=== PATIENT | female | born 1965 | race Caucasian/White ===

== ENCOUNTER 2017-11-07 09:41 | Inpatient (IN) | payer BC, SELFPAY ==
[2017-11-07 09:42] VITALS: BP 82/60; PULSE 76; RESP 18; TEMP 37.2; O2SAT 100; BMI 24.0
[2017-11-07] MEDS: proMETHazine 25 MG/ML Syringe 12.5 MG IV (10:25)
[2017-11-07] MEDS: 0.9% Normal Saline 1,000 ML 1000 ML IV ×2 (10:25)
--- NOTE | 2017-11-07 10:31 | ED.DCSUM_ITS ---
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 Her significant other had diarrhea and fever the preceding week after slipping on the floor at [facility]. Patient states that she last had vomiting last evening. She last had diarrhea 1 hour ago. No recent antibiotics. No recent travel or bad food exposure. She states she has lost 6 pounds since Saturday. She states that her urine is very concentrated and her mouth feels dry. She describes the diarrhea as yellow water. Physical Examination: Blood pressure 82/60 heart rate of 76 respirations are 18 pulse ox 100% on room air afebrile Gen: Well-nourished well-developed Head: Normocephalic atraumatic Eyes: Perrl EOMI ENT: TMs clear no rhinorrhea dry mucous membranes Neck: Supple no lymphadenopathy no JVD nontender CVS: Regular rate rhythm no murmurs normal S1-S2 Respiratory: No distress clear to auscultation bilaterally chest nontender Abdomen: Soft nontender nondistended normal bowel sounds no masses Back: Nontender Extremity: Nontender no edema Skin: Normal color no rash Neuro: alert orientated ?3 CN II-XII intact normal strength sensation reflexes gait cerebellar Psych: Normal affect normal mood Emergency Department Course and Treatment: White count is normal. Potassium 3.2. Lipase 807. Lactic acid 0.8. Patient received IV fluids blood pressures improved. She is orthostatic negative. She also received Zofran for nausea. CT the abdomen pelvis demonstrated a wen colitis. She received Ancef and Flagyl. Stool cultures were ordered but she has not yet produce stool for us to test. Plan is admission into the hospital. Impression: 1. Acute gastroenteritis 2. Dehydration This note was generated with [employer] dictation software. It may contain incorrect words, spelling, and punctuation that were not noted in review of the chart prior to signing ED Disposition - Plan for ED Patient: Chief Complaint: Nausea/Vomiting/Diarrhea Referrals: Care Physician,No Primary [Primary Care Provider] -
[2017-11-07 10:44] LABS: Absolute Lymphocyte Count 0.86 X10^3/ul (0.83-4.51); Absolute Neutrophil Count 3.5 X10^3/uL (2.0-7.7); Basophil# 0.01 X10^3/uL; Basophil% 0.2 % (0-1); Eosinophil# 0.03 X10^3/uL; Eosinophils% 0.6 % (0-5); Hematocrit 37.1 % (37-47); Hemoglobin 12.2 g/dl (12.0-15.0); Lymphocyte # 0.86 X10^3/ul (4.0); Mean Corp Hgb Conc 32.9 g/gl (32-36); Mean Corpuscular Hgb 28.8 pg (27.0-32.0); Mean Corpuscular Volume 87.5 fL (81-99); Mean Platelet Vol. 11.1 fl (6.2-12.0); Monocyte# 0.62 X10^3/uL; Monocyte% 12.3 % (0-10); Neutrophil # 3.53 X10^3/uL (2.7-7.7); Neutrophil % 69.9 % (47-70); Platelet Count 129 K/mm3 (150-450); RBC Distribution Width CV 13.9 % (11.6-14.6); RBC Distribution Width SD 44.6 fl (35.1-43.9); Red Blood Count 4.24 M/mm3 (4.2-5.4); White Blood Count 5.1 K/mm3 (4.4-11.0)
[2017-11-07 10:50] LABS: POSITIVE COUNT NO; POSITIVE DIFFERENTIAL NO; POSITIVE MORPHOLOGY NO
[2017-11-07 10:58] LABS: ALB/GLOB Ratio 0.8 RATIO (0.9-2.4); AST(SGOT) 27 U/L (15-37); Alanine Aminotransfer ALT/SGPT 20 U/L (13-56); Albumin, Serum 3.1 g/dL (3.2-5.0); Alkaline Phosphatase 55 U/L (45-117); Anion Gap 10 (5-15); BUN 14 mg/dL (7-18); BUN/Creat Ratio 14.3 RATIO (10-20); Calcium,Total 8.4 mg/dL (8.5-10.1); Chloride 103 mmol/L (98-107); Creatinine, Serum 0.98 mg/dL (0.55-1.02); EST Glomerular Filtration Rate 64 mL/min (>60); Est Glom Filt Rate - Afr Amer 77 mL/min (>60); Estimated Creatinine Clearance 67.74 ml/min; Globulin 3.9 g/dL (2.2-4.2); Glucose 82 mg/dL (74-106); Lipase 807 U/L (73-393); Potassium 3.2 mmol/L (3.5-5.1); Sodium Level 139 mmol/L (136-145)
[2017-11-07 11:49] LABS: Magnesium 2.4 mg/dL (1.6-2.6)
[2017-11-07 12:12] VITALS: RESP 16
[2017-11-07 14:26] VITALS: BP 87/53; PULSE 70; RESP 14; O2SAT 99
[2017-11-07] MEDS: 0.9% Normal Saline 1,000 ML 125 ML IV ×2 (14:35→18:11)
[2017-11-07 14:45] VITALS: BP 91/63; PULSE 82; RESP 14; O2SAT 100
[2017-11-07 15:07] LABS: Lactic Acid 0.8 mmol/L (0.4-2.0)
[2017-11-07 16:05] VITALS: BMI 24.5
[2017-11-07 16:09] VITALS: BMI 24.5
--- NOTE | 2017-11-07 17:04 | PCM.HP.STD ---
Problem List (1) Colitis Status: Acute History of Present Illness Date of Admission: 11/07/17 Chief Complaint: Abdominal pain and diarrhea The patient is a 52 year old F with no PMH presents after a few days of diarrhea, abdominal pain and weight loss. She states that on 10/28 she and her spent a few days in [facility] and initially he had fevers, chills, and diarrhea and it resolved after a few days. She has continued to have diarrhea and intermittent cramping pain without emesis. No blood in her stool and no family h/o IBD. Past Medical History Allergies No Known Allergies Allergy (Verified 11/07/17 09:44) Home Medications: Ambulatory Orders Medication Instructions Recorded NK [NK] 11/07/17 Surgical History: no surgical history Lives: With Family Smoking Status: Never smoker Alcohol: None Drugs: None - *Family History Paternal History Items: Heart Disease Review of Systems Constitutional: Reports: Weight Change. Denies: Chills, Fever Eyes: Denies: Blurred vision, Vision Change HEENT: Denies: Head Aches, Sinus Congestion, Sinus Drainage Cardiovascular: Denies: Chest Pain, Palpitations Respiratory: Denies: Cough, Shortness of breath at rest, Sputum production Gastrointestinal: Reports: Abdominal Pain, Diarrhea, Nausea. Denies: Hematochezia, Melena, Vomiting Genitourinary: Denies: Dysuria Musculoskeletal: Denies: Joint Pain, Joint Tenderness Skin: Denies: Rash, Wounds Neurological: Denies: Numbness, Tingling, Focal weakness Psychiatric: Denies: Anxiety, Depression Hematologic/ Lymphatic: Denies: Easy Bruising, Easy Bleeding VTE Information - Inpt Only VTE Present on Admission: No Patient Problems: Active and Suspected Problems Colitis (Acute) - Physical Exam General: Alert, Oriented x3, Cooperative, No apparent distress HEENT: Atraumatic, EOMI, Normocephalic Neck: Supple, No JVD Lungs: Clear to auscultation, Normal air movement, No rhonchi, No wheeze, No rales Cardiovascular: Regular rate, Regular Rhythm, Normal S1, Normal S2, No murmurs Abdomen: Soft, Non-Distended, No Hepato-splenomegaly, Tender - slightly to deep palpation Extremities: No edema, Capillary Refill Less than 3 Seconds Skin: No rashes, No breakdown Neurological: Neuro grossly intact, Sensory exam intact to light touch and pain Psych/Mental Status: Normal Affect, Appropriate Vital Signs Temp Pulse Resp BP Pulse Ox 98.9 F 82 14 91/63 100 11/07/17 09:42 11/07/17 14:45 11/07/17 14:45 11/07/17 14:45 11/07/17 14:45 Weight: 161 lb 1.6 oz Body Mass Index (BMI) 24.5 Assessment/Plan All Active Problems Colitis (Acute) 1. Infectious pancolitis - Based on the CT scan she has a wen colitis - No leukocytosis and not septic - Will start IVF@125 and make NPO - Cipro/Flagyl IV - stool studies pending, lactoferrin is positive - Zofran for nausea DVT: Heparin Diet: NPO Code Visit Inpatient E&M: 78360 Init Hosp L2
[2017-11-07 18:01] VITALS: BP 83/56; PULSE 64; RESP 18; TEMP 36.8; O2SAT 100
[2017-11-07] MEDS: Ciprofloxacin 400 MG/200 ML BAG 200 MG IV (19:21)
[2017-11-07] MEDS: Heparin Injection (Vial) 5,000 UNIT/ML VIAL 5000 UNIT SC (20:33)
[2017-11-07] MEDS: 0.9% NaCl Peripheral Flush Adult/Peds IV (20:34)
[2017-11-07] MEDS: Ondansetron 4 MG/2 ML Vial IV (20:34)
[2017-11-07 20:51] VITALS: BP 86/56; PULSE 67; RESP 16; TEMP 37; O2SAT 100
[2017-11-08 01:52] VITALS: BP 89/51; PULSE 65; RESP 16; TEMP 36.9; O2SAT 97
[2017-11-08] MEDS: 0.9% Normal Saline 1,000 ML 125 ML IV (03:41)
[2017-11-08 06:31] LABS: Absolute Lymphocyte Count 1.43 X10^3/ul (0.83-4.51); Absolute Neutrophil Count 2.3 X10^3/uL (2.0-7.7); Basophil# 0.02 X10^3/uL; Basophil% 0.4 % (0-1); Eosinophil# 0.06 X10^3/uL; Eosinophils% 1.3 % (0-5); Hematocrit 29.4 % (37-47); Hemoglobin 9.5 g/dl (12.0-15.0); Lymphocyte # 1.43 X10^3/ul (4.0); Lymphocyte % 32.1 % (19-41); Mean Corp Hgb Conc 32.3 g/gl (32-36); Mean Corpuscular Hgb 28.9 pg (27.0-32.0); Mean Corpuscular Volume 89.4 fL (81-99); Mean Platelet Vol. 10.9 fl (6.2-12.0); Monocyte# 0.62 X10^3/uL; Monocyte% 13.9 % (0-10); Neutrophil # 2.33 X10^3/uL (2.7-7.7); Neutrophil % 52.3 % (47-70); Platelet Count 121 K/mm3 (150-450); RBC Distribution Width CV 14.2 % (11.6-14.6); RBC Distribution Width SD 46.8 fl (35.1-43.9); Red Blood Count 3.29 M/mm3 (4.2-5.4); White Blood Count 4.5 K/mm3 (4.4-11.0)
[2017-11-08 06:35] LABS: POSITIVE COUNT NO; POSITIVE DIFFERENTIAL NO; POSITIVE MORPHOLOGY NO
[2017-11-08 06:54] LABS: Anion Gap 9 (5-15); BUN 11 mg/dL (7-18); BUN/Creat Ratio 16.2 RATIO (10-20); Calcium,Total 7.3 mg/dL (8.5-10.1); Chloride 113 mmol/L (98-107); Creatinine, Serum 0.68 mg/dL (0.55-1.02); EST Glomerular Filtration Rate 97 mL/min (>60); Est Glom Filt Rate - Afr Amer 117 mL/min (>60); Estimated Creatinine Clearance 97.62 ml/min; Glucose 64 mg/dL (74-106); Potassium 3.9 mmol/L (3.5-5.1); Sodium Level 146 mmol/L (136-145)
--- NOTE | 2017-11-08 08:23 | NURSING ---
Addendum entered by Eva Ambriz 11/08/17 09:59: at 0900 Dr. Lantigua reported that he changed IVF and that he ordered clear liquids. Patient given 3 cups of apple juice at that time. Original Note: Addendum entered by Eva Ambriz 11/08/17 08:38: BGT checked at this time- pt denies symptoms and states she is feeling better today. Dr. Lantigua updated. Original Note: Noticed that AM lab results showed NA= 146 and glucose=64 and that pt NPO with NS running at 125cc/hr. GABRIELA Jansen and Dr. Lantigua notified of same. This RN entered room to check on patient- pt resting with eyes closed, easily awakened and verbalized understanding that doctor is on unit. Pt. asymptomatic at this time.
[2017-11-08 08:35] LABS: Bedside Glucose 53 mg/dL (70-110)
[2017-11-08] MEDS: Ciprofloxacin 400 MG/200 ML BAG 200 MG IV (09:36)
[2017-11-08] MEDS: Heparin Injection (Vial) 5,000 UNIT/ML VIAL 5000 UNIT SC ×2 (09:47→21:01)
[2017-11-08 09:50] VITALS: BP 77/46; PULSE 66; RESP 18; TEMP 36.8; O2SAT 100
[2017-11-08 10:00] VITALS: BP 81/54
[2017-11-08 10:06] LABS: Bedside Glucose 69 mg/dL (70-110)
--- NOTE | 2017-11-08 10:20 | PCM.PN.HOSP ---
Patient Problems: Active and Suspected Problems Colitis (Acute) Hypotension (Acute) Hypoglycemia (Acute) Subjective: Feels better today. Patient states that her symptoms began Saturday. Also that time patient's got sick but his symptoms did resolve after to 3 days but her symptoms continue to get worse. Patient never had any symptoms to this extent before. No prior history of inflammatory bowel disease. No family history of inflammatory bowel disease. Vitals/I&O's: Vital Signs Temp Pulse Resp BP Pulse Ox 36.8 C 66 18 81/54 L 100 11/08/17 09:50 11/08/17 09:50 11/08/17 09:50 11/08/17 10:00 11/08/17 09:50 Oxygen Delivery Method Room Air Weight: 73.074 kg Body Mass Index (BMI) 24.5 Intake and Output for Last 24 Hours 11/06/17 11/07/17 11/08/17 23:59 23:59 23:59 Intake Total 672 / 672 797 / 797 Output Total 200 / 200 Balance 472 / 472 797 / 797 General: Alert, No apparent distress HEENT: Atraumatic, Normocephalic Oral: Moist Mucosa, No Gingival or Mucosal Lesions/ Ulcerations Neck: No Nodes, Thyroid Normal Size and Texture Lungs: Clear to auscultation, Normal air movement, No rhonchi, No wheeze Cardiovascular: Regular rate, Regular Rhythm, Normal S1, Normal S2, No murmurs Abdomen: Bowel Sounds Present, Soft, Non Tender, Non-Distended Extremities: No edema, No Calf Tenderness Skin: No rashes, No breakdown Musculoskeletal: No Tenderness to Palpation of Joints or Extremities, No Muscle Wasting Neurological: Sensory exam intact to light touch and pain, Coordination normal Psych/Mental Status: Normal Affect, Appropriate Laboratory Results 11/08/17 06:00: WBC 4.5, RBC 3.29 L, Hgb 9.5 L, Hct 29.4 L, MCV 89.4, MCH 28.9, MCHC 32.3, RDW 14.2, RDW Differential 46.8 H, Plt Count 121 L, MPV 10.9, Immature Gran % (Auto) 0.000, Neut % (Auto) 52.3, Lymph % (Auto) 32.1, [place] % (Auto) 13.9 H, Eos % (Auto) 1.3, Baso % (Auto) 0.4, Absolute Neuts (auto) 2.3, Absolute Lymphs (auto) 1.43, Total Counted Not Reportable 11/08/17 06:00: Sodium 146 H, Potassium 3.9, Chloride 113 H, Carbon Dioxide 24.0, Anion Gap 9, BUN 11, Creatinine 0.68, Estim Creat Clear Calc 97.62, Est GFR (MDRD) Af Amer 117, Est GFR (MDRD) Non-Af 97, BUN/Creatinine Ratio 16.2, Glucose 64 L, Calcium 7.3 L 11/08/17 08:29: POC Glucose 53 L 11/08/17 09:52: POC Glucose 69 L Current Medications Heparin Sodium (Porcine) (Heparin Na) 5,000 unit SC Q12 GUS Last Admin: 11/08/17 09:47 Dose: 5,000 unit Ciprofloxacin (Cipro) 400 mg in 200 mls @ 200 mls/hr IV Q12 GUS Last Admin: 11/08/17 09:36 Dose: 200 mls/hr Metronidazole (Flagyl) 500 mg in 100 mls @ 100 mls/hr IV Q8 GUS Last Admin: 11/08/17 05:08 Dose: 100 mls/hr Sodium Chloride () 1,000 mls @ 999 mls/hr IV .Q1H1M ONE Stop: 11/08/17 11:19 Dextrose/Sodium Chloride () 1,000 mls @ 150 mls/hr IV .Q6H40M GUS Magnesium Hydroxide (Milk Of Magnesia) 30 ml PO DAILY PRN PRN PRN Reason: Constipation Nutritional Formula (Lactose Free) (Ensure Clear) 120 ml PO 4X/DAY GUS Ondansetron HCl (Zofran) 4 mg IV Q8H PRN PRN PRN Reason: NAUSEA Last Admin: 11/07/17 20:34 Dose: 4 mg Sodium Chloride () 5 - 30 ml IV UD PRN PRN Reason: SALINE FLUSH Last Admin: 11/07/17 20:34 Dose: 10 ml Medical Necessity - Tobacco Use Smoking Status: Never smoker Assessment/Plan All Active Problems Colitis (Acute) Hypotension (Acute) Hypoglycemia (Acute) 1. Acute colitis Suspect infectious Patient had what sounded like viral gastroenteritis initially and also during that time her was sick with similar symptoms. She may have developed a secondary infection as well Would continue with the Cipro and Flagyl Follow-up enteric pathogen studies as well as C. difficile Clear diet I doubt inflammatory bowel diseases this is the patient's first issue with this, additionally, patient's was sick with similar symptoms. I doubt ischemic has patient had no significant abdominal pain and her lactic acid was normal 2. Hypotension Asymptomatic Will give patient bolus of IV fluids and monitor 3. Hypoglycemia Will change to maintenance fluids to D5 half-normal and monitor 4. DVT prophylaxis with heparin 5. Elevated lipase Clinically no pancreatitis could be correlated with the underlying colitis or infectious process associated with it. Follow-up in the morning Patient will be monitored at least overnight and assess her responsiveness to IV fluids and antibiotics. It is yet to be determined when the patient may be ready for discharge. Code Visit Inpatient E&M: 21915 [facility] Hosp L3
--- NOTE | 2017-11-08 10:25 | PN_ITS ---
Patient Problems: Active and Suspected Problems Colitis (Acute) Hypotension (Acute) Hypoglycemia (Acute) Subjective: Feels better today. Patient states that her symptoms began Saturday. Also that time patient's got sick but his symptoms did resolve after to 3 days but her symptoms continue to get worse. Patient never had any symptoms to this extent before. No prior history of inflammatory bowel disease. No family history of inflammatory bowel disease. Vitals/I&O's: Vital Signs Temp Pulse Resp BP Pulse Ox 36.8 C 66 18 81/54 L 100 11/08/17 09:50 11/08/17 09:50 11/08/17 09:50 11/08/17 10:00 11/08/17 09:50 Oxygen Delivery Method Room Air Weight: 73.074 kg Body Mass Index (BMI) 24.5 Intake and Output for Last 24 Hours 11/06/17 11/07/17 11/08/17 23:59 23:59 23:59 Intake Total 672 / 672 797 / 797 Output Total 200 / 200 Balance 472 / 472 797 / 797 General: Alert, No apparent distress HEENT: Atraumatic, Normocephalic Oral: Moist Mucosa, No Gingival or Mucosal Lesions/ Ulcerations Neck: No Nodes, Thyroid Normal Size and Texture Lungs: Clear to auscultation, Normal air movement, No rhonchi, No wheeze Cardiovascular: Regular rate, Regular Rhythm, Normal S1, Normal S2, No murmurs Abdomen: Bowel Sounds Present, Soft, Non Tender, Non-Distended Extremities: No edema, No Calf Tenderness Skin: No rashes, No breakdown Musculoskeletal: No Tenderness to Palpation of Joints or Extremities, No Muscle Wasting Neurological: Sensory exam intact to light touch and pain, Coordination normal Psych/Mental Status: Normal Affect, Appropriate Laboratory Results 11/08/17 06:00: WBC 4.5, RBC 3.29 L, Hgb 9.5 L, Hct 29.4 L, MCV 89.4, MCH 28.9, MCHC 32.3, RDW 14.2, RDW Differential 46.8 H, Plt Count 121 L, MPV 10.9, Immature Gran % (Auto) 0.000, Neut % (Auto) 52.3, Lymph % (Auto) 32.1, [place] % ( Auto) 13.9 H, Eos % (Auto) 1.3, Baso % (Auto) 0.4, Absolute Neuts (auto) 2.3, Absolute Lymphs (auto) 1.43, Total Counted Not Reportable 11/08/17 06:00: Sodium 146 H, Potassium 3.9, Chloride 113 H, Carbon Dioxide 24.0 , Anion Gap 9, BUN 11, Creatinine 0.68, Estim Creat Clear Calc 97.62, Est GFR ( MDRD) Af Amer 117, Est GFR (MDRD) Non-Af 97, BUN/Creatinine Ratio 16.2, Glucose 64 L, Calcium 7.3 L 11/08/17 08:29: POC Glucose 53 L 11/08/17 09:52: POC Glucose 69 L Current Medications Heparin Sodium (Porcine) (Heparin Na) 5,000 unit SC Q12 GUS Last Admin: 11/08/17 09:47 Dose: 5,000 unit Ciprofloxacin (Cipro) 400 mg in 200 mls @ 200 mls/hr IV Q12 GUS Last Admin: 11/08/17 09:36 Dose: 200 mls/hr Metronidazole (Flagyl) 500 mg in 100 mls @ 100 mls/hr IV Q8 GUS Last Admin: 11/08/17 05:08 Dose: 100 mls/hr Sodium Chloride () 1,000 mls @ 999 mls/hr IV .Q1H1M ONE Stop: 11/08/17 11:19 Dextrose/Sodium Chloride () 1,000 mls @ 150 mls/hr IV .Q6H40M GUS Magnesium Hydroxide (Milk Of Magnesia) 30 ml PO DAILY PRN PRN PRN Reason: Constipation Nutritional Formula (Lactose Free) (Ensure Clear) 120 ml PO 4X/DAY GUS Ondansetron HCl (Zofran) 4 mg IV Q8H PRN PRN PRN Reason: NAUSEA Last Admin: 11/07/17 20:34 Dose: 4 mg Sodium Chloride () 5 - 30 ml IV UD PRN PRN Reason: SALINE FLUSH Last Admin: 11/07/17 20:34 Dose: 10 ml Medical Necessity - Tobacco Use Smoking Status: Never smoker Assessment/Plan All Active Problems Colitis (Acute) Hypotension (Acute) Hypoglycemia (Acute) 1. Acute colitis * Suspect infectious * Patient had what sounded like viral gastroenteritis initially and also during that time her was sick with similar symptoms. * She may have developed a secondary infection as well * Would continue with the Cipro and Flagyl * Follow-up enteric pathogen studies as well as C. difficile * Clear diet * I doubt inflammatory bowel diseases this is the patient's first issue with this, additionally, patient's was sick with similar symptoms. * I doubt ischemic has patient had no significant abdominal pain and her lactic acid was normal 2. Hypotension * Asymptomatic * Will give patient bolus of IV fluids and monitor 3. Hypoglycemia * Will change to maintenance fluids to D5 half-normal and monitor 4. DVT prophylaxis with heparin 5. Elevated lipase * Clinically no pancreatitis could be correlated with the underlying colitis or infectious process associated with it. * Follow-up in the morning Patient will be monitored at least overnight and assess her responsiveness to IV fluids and antibiotics. It is yet to be determined when the patient may be ready for discharge. Code Visit Inpatient E&M: 34242 Subs Hosp L3
[2017-11-08] MEDS: 0.9% Normal Saline 1,000 ML 999 ML IV (10:49)
[2017-11-08 11:00] LABS: Bedside Glucose 125 mg/dL (70-110)
--- NOTE | 2017-11-08 11:54 | CASEMGMT ---
RN CM Assessment completed See Link. DC Plan: home.
[2017-11-08] MEDS: Dext 5%-0.45% NS 1,000 ML 150 ML IV ×2 (11:58→19:25)
[2017-11-08] MEDS: 0.9% NaCl Peripheral Flush Adult/Peds IV (15:12)
[2017-11-08] MEDS: Ondansetron 4 MG/2 ML Vial IV (15:12)
[2017-11-08 15:13] VITALS: BP 83/54; PULSE 68; RESP 16; TEMP 37.1; O2SAT 100
[2017-11-08 20:00] VITALS: BP 90/55; PULSE 62; RESP 18; TEMP 36.7; O2SAT 100
[2017-11-09 02:00] VITALS: BP 94/51; PULSE 74; RESP 18; TEMP 37.3; O2SAT 98
[2017-11-09] MEDS: Dext 5%-0.45% NS 1,000 ML 150 ML IV (03:27)
[2017-11-09 08:16] LABS: Absolute Lymphocyte Count 1.56 X10^3/ul (0.83-4.51); Absolute Neutrophil Count 2.4 X10^3/uL (2.0-7.7); Basophil# 0.04 X10^3/uL; Basophil% 0.9 % (0-1); Eosinophils% 2.1 % (0-5); Hematocrit 28.5 % (37-47); Hemoglobin 9.2 g/dl (12.0-15.0); Lymphocyte # 1.56 X10^3/ul (4.0); Lymphocyte % 33.4 % (19-41); Mean Corp Hgb Conc 32.3 g/gl (32-36); Mean Corpuscular Hgb 28.9 pg (27.0-32.0); Mean Corpuscular Volume 89.6 fL (81-99); Mean Platelet Vol. 11.3 fl (6.2-12.0); Monocyte# 0.57 X10^3/uL; Monocyte% 12.2 % (0-10); Neutrophil # 2.39 X10^3/uL (2.7-7.7); Neutrophil % 51.2 % (47-70); Platelet Count 125 K/mm3 (150-450); RBC Distribution Width CV 13.9 % (11.6-14.6); RBC Distribution Width SD 44.6 fl (35.1-43.9); Red Blood Count 3.18 M/mm3 (4.2-5.4); White Blood Count 4.7 K/mm3 (4.4-11.0)
[2017-11-09 08:17] LABS: Differential Indicated SCAN CRITERIA MET; POSITIVE COUNT NO; POSITIVE DIFFERENTIAL NO; POSITIVE MORPHOLOGY YES
[2017-11-09 08:51] LABS: ALB/GLOB Ratio 0.8 RATIO (0.9-2.4); AST(SGOT) 13 U/L (15-37); Alanine Aminotransfer ALT/SGPT 14 U/L (13-56); Albumin, Serum 2.3 g/dL (3.2-5.0); Alkaline Phosphatase 40 U/L (45-117); Anion Gap 8 (5-15); BUN 4 mg/dL (7-18); BUN/Creat Ratio 4.9 RATIO (10-20); Calcium,Total 7.3 mg/dL (8.5-10.1); Chloride 109 mmol/L (98-107); Creatinine, Serum 0.81 mg/dL (0.55-1.02); EST Glomerular Filtration Rate 79 mL/min (>60); Est Glom Filt Rate - Afr Amer 96 mL/min (>60); Estimated Creatinine Clearance 81.96 ml/min; Globulin 2.8 g/dL (2.2-4.2); Glucose 100 mg/dL (74-106); Lipase 2891 U/L (73-393); Potassium 3.4 mmol/L (3.5-5.1); Protein, Total 5.1 g/dL (6.4-8.2); Sodium Level 144 mmol/L (136-145)
[2017-11-09 09:48] VITALS: BP 93/55; PULSE 70; RESP 16; TEMP 37.4; O2SAT 96
[2017-11-09] MEDS: Heparin Injection (Vial) 5,000 UNIT/ML VIAL 5000 UNIT SC (09:55)
--- NOTE | 2017-11-09 10:03 | PCM.PN.HOSP ---
Patient Problems: Active and Suspected Problems Hypoglycemia (Acute) Hypotension (Acute) Colitis (Acute) Subjective: Diarrhea resolved. no abdominal pain. no nausea. Vitals/I&O's: Vital Signs Temp Pulse Resp BP Pulse Ox 37.4 C H 70 16 93/55 L 96 11/09/17 09:48 11/09/17 09:48 11/09/17 09:48 11/09/17 09:48 11/09/17 09:48 Oxygen Delivery Method Room Air Weight: 73.074 kg Body Mass Index (BMI) 24.5 Intake and Output for Last 24 Hours 11/07/17 11/08/17 11/09/17 23:59 23:59 23:59 Intake Total 672 / 672 3514 / 3514 1707 / 1707 Output Total 200 / 200 1000 / 1000 500 / 500 Balance 472 / 472 2514 / 2514 1207 / 1207 General: Alert, No apparent distress HEENT: Atraumatic, Normocephalic Oral: Moist Mucosa, No Gingival or Mucosal Lesions/ Ulcerations Neck: No Nodes, Thyroid Normal Size and Texture Lungs: Clear to auscultation, Normal air movement, No rhonchi, No wheeze Cardiovascular: Regular rate, Regular Rhythm, Normal S1, Normal S2 Abdomen: Bowel Sounds Present, Soft, Non Tender, Non-Distended, No Hepato-splenomegaly Laboratory Results 11/08/17 09:52: POC Glucose 69 L 11/08/17 10:54: POC Glucose 125 H 11/09/17 07:30: WBC 4.7, RBC 3.18 L, Hgb 9.2 L, Hct 28.5 L, MCV 89.6, MCH 28.9, MCHC 32.3, RDW 13.9, RDW Differential 44.6 H, Plt Count 125 L, MPV 11.3, Immature Gran % (Auto) 0.200, Neut % (Auto) 51.2, Lymph % (Auto) 33.4, [place] % (Auto) 12.2 H, Eos % (Auto) 2.1, Baso % (Auto) 0.9, Absolute Neuts (auto) 2.4, Absolute Lymphs (auto) 1.56, Total Counted Not Reportable 11/09/17 07:30: Sodium 144, Potassium 3.4 L, Chloride 109 H, Carbon Dioxide 27.0, Anion Gap 8, BUN 4 L, Creatinine 0.81, Estim Creat Clear Calc 81.96, Est GFR (MDRD) Af Amer 96, Est GFR (MDRD) Non-Af 79, BUN/Creatinine Ratio 4.9 L, Glucose 100, Calcium 7.3 L, Total Bilirubin 0.20, AST 13 L, ALT 14, Alkaline Phosphatase 40 L, Total Protein 5.1 L, Albumin 2.3 L, Globulin 2.8, Albumin/Globulin Ratio 0.8 L, Lipase 2891 H Current Medications Heparin Sodium (Porcine) (Heparin Na) 5,000 unit SC Q12 [facility] Last Admin: 11/09/17 09:55 Dose: 5,000 unit Dextrose/Sodium Chloride () 1,000 mls @ 150 mls/hr IV .Q6H40M [facility] Last Admin: 11/09/17 03:27 Dose: 150 mls/hr Azithromycin 500 mg/ Dextrose 255 mls @ 250 mls/hr IV Q24 [facility] Last Admin: 11/09/17 09:32 Dose: 250 mls/hr Magnesium Hydroxide (Milk Of Magnesia) 30 ml PO DAILY PRN PRN PRN Reason: Constipation Nutritional Formula (Lactose Free) (Ensure Clear) 120 ml PO 4X/DAY [facility] Last Admin: 11/09/17 09:32 Dose: Not Given Ondansetron HCl (Zofran) 4 mg IV Q8H PRN PRN PRN Reason: NAUSEA Last Admin: 11/08/17 15:12 Dose: 4 mg Sodium Chloride () 5 - 30 ml IV UD PRN PRN Reason: SALINE FLUSH Last Admin: 11/08/17 15:12 Dose: 10 ml Medical Necessity - Tobacco Use Smoking Status: Never smoker Assessment/Plan All Active Problems Hypoglycemia (Acute) Hypotension (Acute) Colitis (Acute) 1. Acute colitis Due to Campylobacter Patient will require total of 3 days of Azithromycin C. diff negative. 2. Hypotension Asymptomatic resolved Will give patient bolus of IV fluids and monitor 3. Hypoglycemia resolved, now hyperglycemic with D5 4. DVT prophylaxis with heparin 5. Elevated lipase Clinically no pancreatitis could be correlated with the underlying colitis or infectious process associated with it. Follow-up in the morning Increased today, but symptomatically better Discharge today.
--- NOTE | 2017-11-09 10:08 | PCM.DC ---
- Discharge Diagnoses Current Active Problems: Current Active and Chronic Problems Hypoglycemia (Acute) Hypotension (Acute) Colitis (Acute) You will use the following diet at home:: No restrictions Your food should be the consistency of: Regular Your liquids should be the consistency of: Regular/Thin Discharge Activity: Return to Normal Activity Return to work on:: 11/11/17 Call your doctor if you observe: Fever of 101 or Higher, - - worsening abdominal pain, diarrhea Allergies/Adverse Reactions: Allergies No Known Allergies Allergy (Verified 11/07/17 09:44) Medications to take at Discharge Azithromycin 500 mg PO DAILY #2 tab 11/09/17 The following prescriptions were given: Azithromycin 500 mg PO DAILY #2 tab Primary Care Physician: Care Physician,No Primary [Primary Care Provider] - Please follow up with your Primary Care Physician in: 1-2 weeks Test Results: Test results from this visit will be discussed in further detail at your follow-up appointment, if applicable. Proposed Discharge Date: 11/09/17
--- NOTE | 2017-11-09 10:09 | PCM.WORK.EX ---
Work/School Excuse Work/School Excuse for:: Patient Please excuse this person from:: Work From: 11/07/17 through: 11/11/17
--- NOTE | 2017-11-09 10:11 | PCM.DC.SUM ---
Discharge Date and Diagnosis - Problem List Patient Problems: Active and Suspected Problems Hypoglycemia (Acute) Hypotension (Acute) Colitis (Acute) Date of Admission: 11/07/17 Date of Discharge: 11/09/17 - Primary Discharge Diagnosis Active and Suspected Problems Hypoglycemia (Acute) Hypotension (Acute) Colitis (Acute) Hospital Course and Treatment Imaging Results: Clinical Impression(s) from Imaging Studies Abdomen/Pelvis CT 11/07/17 11:25 IMPRESSION: Findings in keeping with diffuse colitis. Multiple small gallstones. Prominence of the biliary triads. Electronically Signed: Prasanna Benjamin MD at 13:59 EDT Tel [phone], Service support , Operations: None Procedures: None Summary of Care Provided: The patient is a 52 year old F presents with diarrhea and abdominal pain. Found to have colitis on CT. Stool culture + for campylobacter. Likely contracted Campylobacter due to food poisoning. Patient's was also sick, but his was self-remitting. 1. Acute colitis Due to Campylobacter Patient will require total of 3 days of Azithromycin C. diff negative. 2. Hypotension Asymptomatic resolved Will give patient bolus of IV fluids and monitor 3. Hypoglycemia resolved, now hyperglycemic with D5 4. Elevated lipase Clinically no pancreatitis could be correlated with the underlying colitis or infectious process associated with it. Increased today, but symptomatically better[] Discharge Diet: No Restrictions Discharge Activity: Return to Normal Activity Return to work on:: 11/11/17 Call your doctor if you observe: Fever of 101 or Higher, - - worsening abdominal pain, diarrhea Home Medications: Medications to take at Discharge Azithromycin 500 mg PO DAILY #2 tab 11/09/17 Following Prescrptions Were Given to Patient: Azithromycin 500 mg PO DAILY #2 tab Primary Care Physician: Care Physician,No Primary [Primary Care Provider] - Please follow up with your Primary Care Physician in: 1-2 weeks Disposition: Home Minutes spent on discharge:: 32 Patient Condition:: Good Medical Necessity - Tobacco Use Smoking Status: Never smoker Meaningful Use Info Meaningful Use Diagnoses (Choose all that apply): None applicable Code Visit Inpatient E&M: 34343 Disch Hosp
== END 2017-11-09 13:01 | disposition home or self-care (01) | DRG 373 ==
LOC: ED 10:36 → MS2 16:03
PROVIDERS: Admitting Provider Family Medicine; Emergency Provider Emergency Medicine
DX: A04.5 Campylobacter enteritis (principal); I95.9 Hypotension, unspecified; E16.2 Hypoglycemia, unspecified; R74.8 Abnormal levels of other serum enzymes; E86.0 Dehydration
CPT/HCPCS: 36415; 74177; 80048; 80053; 82962; 83605; 83630; 83690; 83735; 85025; 87177; 87209; 87493; 87506; 97802; 99284; J7030; Q9967; A4216; J0744; J2405; J7799

== ENCOUNTER → 2018-10-23 | Outpatient (CLI) | payer BC, SELFPAY ==
[2018-10-23 17:26] LABS: Absolute Lymphocyte Count 1.53 X10^3/uL (0.83-4.51); Absolute Neutrophil Count 3.6 X10^3/uL (2.0-7.7); Basophil# 0.03 X10^3/uL; Basophil% 0.5 % (0-1); Eosinophil# 0.14 X10^3/uL; Eosinophils% 2.4 % (0-5); Hematocrit 38.8 % (37-47); Hemoglobin 12.4 g/dL (12.0-15.0); Lymphocyte # 1.53 X10^3/ul (4.0); Lymphocyte % 26.3 % (19-41); Mean Corpuscular Hgb 29.1 pg (27.0-32.0); Mean Corpuscular Volume 91.1 fL (81-99); Mean Platelet Vol. 11.4 fl (6.2-12.0); Monocyte# 0.47 X10^3/uL; Monocyte% 8.1 % (0-10); NRBC Flagged by Analyzer 0 % (0-5); Neutrophil # 3.62 X10^3/uL (2.7-7.7); Neutrophil % 62.4 % (47-70); Platelet Count 177 K/mm3 (150-450); RBC Distribution Width CV 13.7 % (11.6-14.6); RBC Distribution Width SD 45.7 fl (35.1-43.9); Red Blood Count 4.26 M/mm3 (4.2-5.4); White Blood Count 5.8 K/mm3 (4.4-11.0)
[2018-10-23 17:42] LABS: Erythrocyte Sedimentation Rate 5 mm/hr (0-30)
[2018-10-23 18:24] LABS: AST(SGOT) 18 U/L (15-37); Alanine Aminotransfer ALT/SGPT 24 U/L (13-56); Albumin, Serum 3.7 g/dL (3.2-5.0); Alkaline Phosphatase 83 U/L (45-117); Anion Gap 5 (5-15); BUN 12 mg/dL (7-18); BUN/Creat Ratio 12.4 RATIO (10-20); Calcium,Total 8.6 mg/dL (8.5-10.1); Chloride 106 mmol/L (98-107); Creatinine, Serum 0.97 mg/dL (0.55-1.02); EST Glomerular Filtration Rate 64 mL/min (>60); Est Glom Filt Rate - Afr Amer 78 mL/min (>60); Ferritin 35 ng/mL (8-252); Free T3 2.9 pg/mL (2.18-3.98); Globulin 3.6 g/dL (2.2-4.2); Glucose 82 mg/dL (74-106); Iron 80 ug/dL (50-170); Protein, Total 7.3 g/dL (6.4-8.2); Sodium Level 143 mmol/L (136-145); T4 Free Direct 0.66 ng/dL (0.76-1.46); Thyroid Stim Hormone (TSH) 2.31 uIU/mL (0.358-3.74); Vitamin B12 309 pg/mL (211-911); Vitamin D,25 Hydroxy 23.2 ng/mL (29.95-100.01)
== END | disposition home or self-care (01) ==
LOC: MFPLAB 16:35
PROVIDERS: Family Provider Family Medicine; PCP Family Medicine; Referring Provider Family Medicine; Visit Provider Family Medicine
DX: R53.83 Other fatigue (principal); Z85.850 Personal history of malignant neoplasm of thyroid
CPT/HCPCS: 36415; 80053; 82306; 82533; 82607; 82728; 83540; 84439; 84443; 84481; 85025; 85652

== ENCOUNTER → 2019-01-06 15:35 | Outpatient (CLI) | payer BC, SELFPAY ==
[2019-01-06 18:01] LABS: Absolute Lymphocyte Count 1.46 X10^3/uL (0.83-4.51); Basophil# 0.02 X10^3/uL; Basophil% 0.4 % (0-1); Eosinophil# 0.15 X10^3/uL; Eosinophils% 2.9 % (0-5); Hematocrit 37.4 % (37-47); Hemoglobin 12.1 g/dL (12.0-15.0); Lymphocyte # 1.46 X10^3/ul (4.0); Lymphocyte % 28.5 % (19-41); Mean Corp Hgb Conc 32.4 g/dL (32-36); Mean Corpuscular Hgb 29.4 pg (27.0-32.0); Mean Corpuscular Volume 90.8 fL (81-99); Mean Platelet Vol. 11.8 fl (6.2-12.0); Monocyte# 0.46 X10^3/uL; NRBC Flagged by Analyzer 0 % (0-5); Neutrophil # 3.03 X10^3/uL (2.7-7.7); Platelet Count 159 K/mm3 (150-450); RBC Distribution Width CV 13.4 % (11.6-14.6); RBC Distribution Width SD 44.4 fl (35.1-43.9); Red Blood Count 4.12 M/mm3 (4.2-5.4); White Blood Count 5.1 K/mm3 (4.4-11.0)
[2019-01-06 18:23] LABS: Follicle Stimulating Hormone 111.5 mIU/mL; Luteinizing Hormone 46.9 mIU/mL; Thyroid Stim Hormone (TSH) 0.38 uIU/mL (0.358-3.74); Vitamin B12 832 pg/mL (211-911); Vitamin D,25 Hydroxy 24.8 ng/mL (29.95-100.01)
[2019-01-07 13:01] LABS: T4 Free Direct 0.84 ng/dL (0.76-1.46)
== END ==
LOC: MFPLAB 15:35
PROVIDERS: Family Provider Family Medicine; PCP Family Medicine; Referring Provider Family Medicine; Visit Provider Family Medicine
DX: R23.2 Flushing (principal); E53.9 Vitamin B deficiency, unspecified; E55.9 Vitamin D deficiency, unspecified; E03.9 Hypothyroidism, unspecified
CPT/HCPCS: 36415; 82306; 82607; 83001; 83002; 84439; 84443; 85025

== ENCOUNTER 2019-08-22 10:06 | Emergency (ER) | payer BC, SELFPAY ==
[2019-08-22] VITALS (7 sets, daily range): BP systolic 101–123; BP diastolic 74–79; PULSE 59–88; RESP 13–16; TEMP 36.3–37; O2SAT 96–100; BMI 28.8
--- NOTE | 2019-08-22 11:00 | EKG12_ITS ---
Test Reason : DYSRHYTHMIA Blood Pressure : / mmHG Vent. Rate : 060 BPM Atrial Rate : 060 BPM P-R Int : 112 ms QRS Dur : 080 ms QT Int : 392 ms P-R-T Axes : 043 056 036 degrees QTc Int : 392 ms Normal sinus rhythm Normal ECG Confirmed by BILL HERNANDEZ, JUDY ([id number]), publishing editor JOYCE MARTINEZ ([id number]) on 08/25/2019 9:23:57 AM Referred By: Confirmed By:JUDY KHAN MD
--- NOTE | 2019-08-22 11:01 | RAD_ITS ---
STUDY: X-RAY CHEST REASON FOR EXAM: Female, 53 years old. tested positive for COVID-19 July 05 -- continued cough, pt states can hear crackles in lungs TECHNIQUE: PA and lateral views of the chest. COMPARISON: None. FINDINGS: There is hyperinflation of the lungs consistent with chronic obstructive lung disease (COPD). There is no demonstrated pleural abnormality. Normal size heart. Normal mediastinum and bob. Normal visualized pulmonary arteries. Normal visualized aortic arch and descending thoracic aorta. There are diffuse degenerative changes of the visualized thoracic spine. Normal visualized ribs, clavicles, and shoulders. There is no demonstrated abnormality of the visualized soft tissue structures of the upper abdomen. RAD/Chest PA and Lateral IMPRESSION: Degenerative changes, as described above. No demonstrated acute cardiopulmonary process. Electronically Signed: Benson Mckeon MD at 12:01 EDT , Service support ,
--- NOTE | 2019-08-22 11:28 | ED.VIS.GEN ---
History of Present Illness Chief Complaint: Cough Informant: Patient Narrative: Patient states to triage that she has a cough moist lung sounds and a 50 pound weight gain. The 50 pound weight gain has occurred over 6 years but most noticeably over the past couple months has been about 10 pounds. She was diagnosed with COVID at the beginning of July. She notes some lower extremity swelling and states that her thighs feel tight. She states that she coughs and her daughter hears noises that she is concerned she may have CHF or pneumonia. She tells me that she is having difficulty sleeping at night and her reports that last night she was wheezing. No recent fevers. No known heart conditions. No history of asthma. Past Medical History - Allergies and Home Meds Allergies/Adverse Reactions: Allergies No Known Allergies Allergy (Verified 08/22/19 10:11) Primary Care Physician: Levi Alarcon MD [Primary Care Provider] - 5-7 Days Surgical History: no surgical history Smoking Status: Never smoker - Family History Paternal Family History: Reports: Heart Disease Review of Systems General: Reports: - - Weight gain. Denies: Chills, Fever, Sweats Eyes: Denies: Visual changes - bilaterally, Diplopia ENT: Denies: Rhinorrhea, Sore throat Cardiovascular: Denies: Chest pain, Palpitations Respiratory: Reports: Dyspnea, Cough, Dyspnea on exertion, Paroxysmal nocturnal dyspnea. Denies: Orthopnea Gastrointestinal: Denies: Abdominal pain, Nausea, Vomiting, Diarrhea, Melena, Hematochezia Genitourinary: Denies: Dysuria, Hematuria, Frequency Musculoskeletal: Denies: Back pain, Extremity Pain Skin: Denies: Rash, Wounds Neurological: Denies: Headache, Weakness, Numbness Physical Exam Vital Signs/Narrative: Vital Signs Temp Pulse Resp BP Pulse Ox 08/22/19 10:12 97.4 F L 88 16 123/79 H 96 08/22/19 10:08 97.4 F L 88 16 123/79 H 96 Inital Vital Signs reviewed: Yes General: Well nourished, Well developed, No Acute Distress Head: Normocephalic, Atraumatic Eyes: Perrl, EOMI ENT: Moist mucous membranes, No rhinorrhea Neck: Supple, Nontender Cardiovascular: Regular rate, Regular rhythm, No murmurs Respiratory: No distress, Chest nontender, Rales Abdomen: Soft, Nontender, Nondistended, Normal bowel sounds Back: Nontender, Normal Inspection Extremities: Nontender, Edema - 1+ pitting edema of the lower extremities symmetrically bilateral Skin: Normal color, No rash Neurological: Alert, Oriented x3, Cranial nerves II-XII grossly intact, Normal Strength, Normal Sensation Psychological: Normal affect, Normal Mood Diagnostic/Tx/Re-eval Clinical Impression(s) from Imaging Studies Chest X-Ray 08/22/19 11:01 IMPRESSION: Degenerative changes, as described above. No demonstrated acute cardiopulmonary process. Electronically Signed: Benson Mckeon MD at 12:01 EDT , Service support , Laboratory Last Values WBC 4.5 K/mm3 (4.4-11.0) 08/22/19 11:23 RBC 3.91 M/mm3 (4.2-5.4) L 08/22/19 11:23 Hgb 11.3 g/dL (12.0-15.0) L 08/22/19 11:23 Hct 35.6 % (37-47) L 08/22/19 11:23 MCV 91.0 fL (81-99) 08/22/19 11:23 MCH 28.9 pg (27.0-32.0) 08/22/19 11:23 MCHC 31.7 g/dL (32-36) L 08/22/19 11:23 RDW Std Deviation 45.9 fl (35.1-43.9) H 08/22/19 11:23 RDW Coeff of [place] 13.8 % (11.6-14.6) 08/22/19 11:23 Plt Count 159 K/mm3 (150-450) 08/22/19 11:23 MPV 10.6 fl (6.2-12.0) 08/22/19 11:23 Immature Gran % (Auto) 0.200 % (0.0-0.9) 08/22/19 11:23 Neut % (Auto) 53.9 % (47-70) 08/22/19 11:23 Lymph % (Auto) 31.3 % (19-41) 08/22/19 11:23 [place] % (Auto) 9.5 % (0-10) 08/22/19 11:23 Eos % (Auto) 4.9 % (0-5) 08/22/19 11:23 Baso % (Auto) 0.2 % (0-1) 08/22/19 11:23 Absolute Neuts (auto) 2.4 X10^3/uL (2.0-7.7) 08/22/19 11:23 Absolute Lymphs (auto) 1.42 X10^3/uL (0.83-4.51) 08/22/19 11:23 Nucleated RBC % 0 % (0-5) 08/22/19 11:23 Sodium 142 mmol/L (136-145) 08/22/19 11:23 Potassium 4.0 mmol/L (3.5-5.1) 08/22/19 11:23 Chloride 107 mmol/L (98-107) 08/22/19 11:23 Carbon Dioxide 31.0 mmol/L (21.0-32.0) 08/22/19 11:23 Anion Gap 4 (5-15) L 08/22/19 11:23 BUN 14 mg/dL (7-18) 08/22/19 11:23 Creatinine 1.02 mg/dL (0.55-1.02) 08/22/19 11:23 Estim Creat Clear Calc 64.34 ml/min 08/22/19 11:23 Est GFR (MDRD) Af Amer 73 mL/min (>60) 08/22/19 11:23 Est GFR (MDRD) Non-Af 60 mL/min (>60) 08/22/19 11:23 BUN/Creatinine Ratio 13.7 RATIO (10-20) 08/22/19 11:23 Glucose 79 mg/dL (74-106) 08/22/19 11:23 Calcium 8.5 mg/dL (8.5-10.1) 08/22/19 11:23 Total Bilirubin 0.30 mg/dL (0.20-1.00) 08/22/19 11:23 AST 16 U/L (15-37) 08/22/19 11:23 ALT 26 U/L (13-56) 08/22/19 11:23 Alkaline Phosphatase 75 U/L (45-117) 08/22/19 11:23 Troponin I < 0.015 ng/mL (<0.045) 08/22/19 11:23 B-Natriuretic Peptide 42.5 pg/mL (0-100) 08/22/19 11:23 Total Protein 6.9 g/dL (6.4-8.2) 08/22/19 11:23 Albumin 3.5 g/dL (3.2-5.0) 08/22/19 11:23 Globulin 3.4 g/dL (2.2-4.2) 08/22/19 11:23 Albumin/Globulin Ratio 1.0 RATIO (0.9-2.4) 08/22/19 11:23 Urine Color Yellow (Yellow) 08/22/19 11:20 Urine Clarity Clear (Clear) 08/22/19 11:20 Urine pH 5.0 (5.0 - 8.0) 08/22/19 11:20 Ur Specific [place] 1.020 (1.002-1.030) 08/22/19 11:20 Urine Protein Negative mg/dl (Negative) 08/22/19 11:20 Urine Glucose (UA) Normal mg/dl (Normal) 08/22/19 11:20 Urine Ketones Negative mg/dl (Negative) 08/22/19 11:20 Urine Occult Blood Negative /ul (Negative) 08/22/19 11:20 Urine Nitrite Negative (Negative) 08/22/19 11:20 Urine Bilirubin Negative mg/dL (Negative) 08/22/19 11:20 Urine Urobilinogen Normal mg/dl (Normal) 08/22/19 11:20 Ur Leukocyte Esterase Negative /ul (Negative) 08/22/19 11:20 Urine RBC 0 SEEN /hpf (0-5) 08/22/19 11:20 Urine WBC 0 SEEN /hpf (0-5) 08/22/19 11:20 Ur Squamous Epith Cells 0-5 SEEN /hpf (5-10) 08/22/19 11:20 Urine Bacteria 1+ /hpf (None Seen) 08/22/19 11:20 Urine Mucus 0 SEEN /hpf (<or=2+) 08/22/19 11:20 - EKG Initial EKG Interpretation: Sinus Rhythm - EKG demonstrates a normal sinus rhythm at a rate of 60 without ectopy or concerning features of ACS - Medical Decision Making I see no evidence of pulmonary edema. No evidence of ACS. Her beta natruretic peptide is normal. Renal function is normal. I will place the patient of Lasix 40 mg once a day have her follow-up in 5 to 7 days. Monitor her weight. Asked her to place a couple pillows underneath her mattress tonight see if that makes a difference in her breathing. Return if worsening or concerns ED Disposition - Plan for ED Patient: Disposition: Home or Assisted Living Diagnosis: Lymphedema Instructions: ED Lymphedema Prescriptions: Furosemide [Lasix] 40 mg PO DAILY #6 tab Transmission Status: Sent to [id number] Referrals: Levi Alarcon MD [Primary Care Provider] - 5-7 Days
[2019-08-22 11:34] LABS: Mucous, Urine 0 SEEN /hpf (<or=2+); Red Blood Cells-Urine 0 SEEN /hpf (0-5); White Blood Cells 0 SEEN /hpf (0-5)
[2019-08-22 11:36] LABS: Color, Urine Yellow (Yellow); Glucose, Dipstick Normal (Normal); Ketone-Dipstick Negative (Negative); Leukocyte Esterase-Dipstick Negative /ul (Negative); Nitrite-Dipstick Negative (Negative); Occult Blood-Urine Negative /ul (Negative); Protein-Dipstick Negative (Negative); Urine Bilirubin Dipstick Negative (Negative); Urine Clarity Clear (Clear); Urine Urobilinogen Normal (Normal)
[2019-08-22 11:37] LABS: Absolute Lymphocyte Count 1.42 X10^3/uL (0.83-4.51); Absolute Neutrophil Count 2.4 X10^3/uL (2.0-7.7); Basophil# 0.01 X10^3/uL; Basophil% 0.2 % (0-1); Eosinophil# 0.22 X10^3/uL; Eosinophils% 4.9 % (0-5); Hematocrit 35.6 % (37-47); Hemoglobin 11.3 g/dL (12.0-15.0); Lymphocyte # 1.42 X10^3/ul (4.0); Lymphocyte % 31.3 % (19-41); Mean Corp Hgb Conc 31.7 g/dL (32-36); Mean Corpuscular Hgb 28.9 pg (27.0-32.0); Mean Platelet Vol. 10.6 fl (6.2-12.0); Monocyte# 0.43 X10^3/uL; Monocyte% 9.5 % (0-10); NRBC Flagged by Analyzer 0 % (0-5); Neutrophil # 2.44 X10^3/uL (2.7-7.7); Neutrophil % 53.9 % (47-70); Platelet Count 159 K/mm3 (150-450); RBC Distribution Width CV 13.8 % (11.6-14.6); RBC Distribution Width SD 45.9 fl (35.1-43.9); Red Blood Count 3.91 M/mm3 (4.2-5.4); White Blood Count 4.5 K/mm3 (4.4-11.0)
[2019-08-22 11:49] LABS: Bacteria 1+ /hpf (None Seen); Squamous Epithelial Cells - UA 0-5 SEEN /hpf (5-10)
[2019-08-22 11:54] LABS: AST(SGOT) 16 U/L (15-37); Alanine Aminotransfer ALT/SGPT 26 U/L (13-56); Albumin, Serum 3.5 g/dL (3.2-5.0); Alkaline Phosphatase 75 U/L (45-117); Anion Gap 4 (5-15); BUN 14 mg/dL (7-18); BUN/Creat Ratio 13.7 RATIO (10-20); Calcium,Total 8.5 mg/dL (8.5-10.1); Chloride 107 mmol/L (98-107); Creatinine, Serum 1.02 mg/dL (0.55-1.02); EST Glomerular Filtration Rate 60 mL/min (>60); Est Glom Filt Rate - Afr Amer 73 mL/min (>60); Estimated Creatinine Clearance 64.34 ml/min; Globulin 3.4 g/dL (2.2-4.2); Glucose 79 mg/dL (74-106); Protein, Total 6.9 g/dL (6.4-8.2); Sodium Level 142 mmol/L (136-145)
[2019-08-22 12:17] LABS: BNP,B-Type NATRIURETIC PEPTIDE 42.5 pg/mL (0-100)
[2019-08-25 14:57] LABS: Thyroid Stim Hormone (TSH) 0.49 uIU/mL (0.358-3.74)
== END 2019-08-22 12:45 | disposition home or self-care (01) ==
PROVIDERS: Emergency Provider Emergency Medicine; PCP Family Medicine
DX: I89.0 Lymphedema, not elsewhere classified (principal); R63.5 Abnormal weight gain; Z79.899 Other long term (current) drug therapy; Z86.19 Personal history of other infectious and parasitic diseases
CPT/HCPCS: 71046; 80053; 81001; 83880; 84439; 84443; 84484; 85025; 93005; 99285; A4216

== ENCOUNTER → 2019-10-27 09:10 | Outpatient (CLI) | payer BC, SELFPAY ==
[2019-08-22 10:08] VITALS: BMI 28.8
[2019-10-27 10:36] LABS: Erythrocyte Sedimentation Rate 6 mm/hr (0-30)
[2019-10-27 10:38] LABS: Absolute Neutrophil Count 2.4 X10^3/uL (2.0-7.7); Basophil# 0.02 X10^3/uL; Basophil% 0.5 % (0-1); Eosinophil# 0.16 X10^3/uL; Eosinophils% 3.6 % (0-5); Hematocrit 38.4 % (37-47); Hemoglobin 12.8 g/dL (12.0-15.0); Lymphocyte % 33.8 % (19-41); Mean Corp Hgb Conc 33.3 g/dL (32-36); Mean Corpuscular Hgb 30.4 pg (27.0-32.0); Mean Corpuscular Volume 91.2 fL (81-99); Monocyte# 0.38 X10^3/uL; Monocyte% 8.6 % (0-10); NRBC Flagged by Analyzer 0 % (0-5); Neutrophil # 2.37 X10^3/uL (2.7-7.7); Neutrophil % 53.3 % (47-70); Platelet Count 168 K/mm3 (150-450); RBC Distribution Width CV 14.1 % (11.6-14.6); RBC Distribution Width SD 46.5 fl (35.1-43.9); Red Blood Count 4.21 M/mm3 (4.2-5.4); White Blood Count 4.4 K/mm3 (4.4-11.0)
[2019-10-27 10:59] LABS: Vitamin B12 411 pg/mL (211-911); Vitamin D,25 Hydroxy 39.5 ng/mL
[2019-10-27 12:29] LABS: ALB/GLOB Ratio 1.1 RATIO (0.9-2.4); AST(SGOT) 20 U/L (15-37); Alanine Aminotransfer ALT/SGPT 31 U/L (13-56); Albumin, Serum 3.7 g/dL (3.2-5.0); Alkaline Phosphatase 80 U/L (45-117); Anion Gap 4 (5-15); BUN 10 mg/dL (7-18); BUN/Creat Ratio 10.3 RATIO (10-20); CRP < 2.90 mg/L (0.0-3.0); Calcium,Total 8.7 mg/dL (8.5-10.1); Chloride 108 mmol/L (98-107); Cholesterol 216 mg/dL (200); Creatinine, Serum 0.97 mg/dL (0.55-1.02); EST Glomerular Filtration Rate 63 mL/min (>60); Est Glom Filt Rate - Afr Amer 77 mL/min (>60); Globulin 3.5 g/dL (2.2-4.2); Glucose 82 mg/dL (74-106); High Density Lipoprotein 67 mg/dL; Protein, Total 7.2 g/dL (6.4-8.2); Rheumatoid Factor < 10.0 IU/mL (<15); Sodium Level 141 mmol/L (136-145); Thyroid Stim Hormone (TSH) 1.25 uIU/mL (0.358-3.74); Triglycerides 82 mg/dL; Very Low Density Lipoprotein 16 mg/dL (5-40)
[2019-10-28 16:59] LABS: ANTINUCLEAR ANTIBODIES DIRECT Negative (Negative)
== END ==
LOC: MFPLAB 09:11
PROVIDERS: PCP Family Medicine; Referring Provider Family Medicine; Visit Provider Family Medicine
DX: M25.50 Pain in unspecified joint (principal); E03.9 Hypothyroidism, unspecified; R23.2 Flushing; E55.9 Vitamin D deficiency, unspecified; E53.9 Vitamin B deficiency, unspecified; Z13.220 Encounter for screening for lipoid disorders
CPT/HCPCS: 36415; 80053; 80061; 82306; 82533; 82607; 84439; 84443; 85025; 85652; 86038; 86140; 86431

== ENCOUNTER → 2020-04-14 15:49 | Outpatient (CLI) | payer BC, SELFPAY ==
[2020-03-17 15:55] VITALS: BMI 29.9
--- NOTE | 2020-04-14 15:51 | US_ITS ---
STUDY: THYROID ULTRASOUND REASON FOR EXAM: Female, 54 years old. HX THYROID CA LEFT THYROIDECTOMY 1981 TECHNIQUE: Ultrasound evaluation of the thyroid was performed with real-time and static hanna-scale imaging. COMPARISON: None. FINDINGS: RIGHT LOBE: The right lobe of the thyroid gland measures 3.9 x 1.4 x 1.0 cm. There is a homogeneous echotexture. Within the middle pole of the right thyroid lobe there is a small cystic nodule measuring 0.2 x 0.2 x 0.1 cm. The margins are regular. There is mild peripheral color flow. LEFT LOBE: There is a small area of soft tissue with similar echogenicity as the right thyroid lobe suggestive of residual left-sided thyroid tissue. At this level there is a small cystic nodule measuring 0.9 x 0.5 x 0.4 cm. ISTHMUS: The isthmus measures 0.1 cm. The regional lymph nodes are normal. US/Thyroid IMPRESSION: Findings suggestive of a left-sided thyroidectomy with suggestion of minimal residual thyroid tissue on the left not entirely excluded. Cystic nodule demonstrated at this level measuring 0.9 x 0.5 x 0.4 cm. Due to subtle internal echoes, cannot entirely exclude a hyperechoic lesion. Small cyst within the right thyroid lobe measuring 0.3 cm. Given morphology, these findings favor benign processes. However, due to subtle echoes involving the left nodule, neoplasm cannot be entirely excluded. In addition, benign versus malignant process cannot be excluded without microscopic evaluation for documentation of stability. If indicated, follow-up ultrasound in 6 months recommended. Electronically Signed: Vikki Hermosillo MD at 1:08 EST , Service support ,
--- NOTE | 2020-04-14 16:31 | BI_ITS ---
MAMMOGRAPHY - BILATERAL SCREENING REASON FOR EXAM: Female, 54 years old. Routine annual screening examination. PERTINENT HISTORY: Non-contributory. Remote left excisional breast biopsy. TECHNIQUE: Digital bilateral breast mary kate (3D mammographic acquisition) in the CC and MLO projections. 2-D mediolateral oblique (MLO) and craniocaudad (CC) views of both breasts were obtained. CAD: Full Field Digital Mammography with Computer Added Detection was performed. COMPARISON: No comparison mammograms available at this time. If any prior films become available, an addendum to this report can be generated. FINDINGS: Breast Composition: The breasts are heterogeneously dense, which may obscure small masses. There is an 8.5 mm well-defined nodule in the upper lateral aspect of the right breast. Correlation with ultrasound is recommended. No other significant abnormalities are identified. BI/SCRN MAMM (CAD)W/MARY KATE BILAT IMPRESSION: 8.5 mm well-defined nodule in the upper lateral aspect of the right breast as described. Correlation with ultrasound is recommended. ASSESSMENT CATEGORY: BIRADS Category 0: Incomplete. Need additional imaging evaluation. A letter regarding these results will be sent to the patient by the facility within 30 days. Approximately 10% of breast cancers are not detected by mammography. A normal mammogram should not delay biopsy of a clinically suspicious abnormality. [id number] Electronically Signed: Prasanna Benjamin MD at 10:40 EST , Service support ,
== END ==
PROVIDERS: PCP Family Medicine; Referring Provider Internal Medicine Endocrinology, Diabetes & Metabolism; Visit Provider Family Medicine
DX: Z12.31 Encounter for screening mammogram for malignant neoplasm of breast (principal); C73 Malignant neoplasm of thyroid gland
CPT/HCPCS: 76536; 77063; 77067

== ENCOUNTER → 2020-05-03 15:18 | Outpatient (CLI) | payer BC, SELFPAY ==
[2020-03-17 15:55] VITALS: BMI 29.9
--- NOTE | 2020-05-03 15:19 | US_ITS ---
STUDY: ULTRASOUND BREAST - RIGHT REASON FOR EXAM: Female, 54 years old. Abnormal screening mammogram. TECHNIQUE: Axial and longitudinal images of the RIGHT breast were performed with a high resolution ultrasound transducer. # OF IMAGES: 23 COMPARISON: Comparison is made with prior mammogram dated 04/14/2020. FINDINGS: RIGHT Breast: The upper outer quadrant of the right breast was examined by ultrasound. There are 3 small cysts at the 10 o''clock position of the breast at 4 and 5 cm from nipple. The largest cyst measures 9 mm x 7 mm x 6 mm. US/Breast Limited Unilateral IMPRESSION: 3 small cysts are seen at the 10 o''clock position of the breast at 4 and 5 cm from nipple. ASSESSMENT CATEGORY: BIRADS Category 2: Benign. A letter regarding these results will be sent to the patient by the facility within 30 days. Electronically Signed: Prasanna Benjamin MD at 8:47 EST , Service support ,
== END ==
LOC: OPUS 15:19
PROVIDERS: PCP Family Medicine; Referring Provider Family Medicine; Visit Provider Family Medicine
DX: R92.8 Other abnormal and inconclusive findings on diagnostic imaging of breast (principal)
CPT/HCPCS: 76642

== ENCOUNTER 2021-03-16 15:56 | Outpatient (CLI) | payer BC, SELFPAY ==
[2021-03-16 18:25] LABS: Thyroid Stim Hormone (TSH) < 0.01 uIU/mL (0.358-3.74)
[2021-03-20 20:30] LABS: Anti-Thyroglobulin AB < 1.0 IU/mL (0.0-0.9); Thyroglobulin, Serum Qt. 3.7 ng/mL (1.5-38.5)
== END 2021-03-16 23:59 | disposition short-term general hospital (02) ==
LOC: BIMLAB 15:57
PROVIDERS: PCP Family Medicine; Referring Provider Internal Medicine Endocrinology, Diabetes & Metabolism; Visit Provider Internal Medicine Endocrinology, Diabetes & Metabolism
DX: E89.0 Postprocedural hypothyroidism (principal); C73 Malignant neoplasm of thyroid gland
CPT/HCPCS: 36415; 84432; 84439; 84443; 86800

== ENCOUNTER 2021-03-31 16:12 | Outpatient (CLI) | payer BC, SELFPAY ==
--- NOTE | 2021-03-31 16:14 | US_ITS ---
STUDY: THYROID ULTRASOUND REASON FOR EXAM: Female, 55 years old. Thyroid cancer. Compared to April 2020. TECHNIQUE: Ultrasound evaluation of the thyroid was performed with real-time and static hanna-scale imaging. COMPARISON: None. FINDINGS: RIGHT LOBE: The right lobe of the thyroid gland measures 3.6 x 1.2 x 1.0 cm. There is a heterogeneous echotexture. There are multiple colloid cysts. The largest measures 3 mm. There is no solid mass. Normal vascularity on DOPPLER imaging. LEFT LOBE: The residual left thyroid measures 0.9 x 0.7 x 0.3 cm. There is a heterogeneous echotexture. There is a low-attenuation structure measuring 0.6 x 0.9 x 0.4 cm the thyroid bed. There is minimal peripheral vascularity. ISTHMUS: The isthmus measures 0.7 cm. The regional lymph nodes are normal. US/Thyroid IMPRESSION: No major interval change when compared to a study of April 2020. Electronically Signed: Manjinder Matamoros DO at 22:18 EST ,
== END 2021-03-31 23:59 | disposition short-term general hospital (02) ==
LOC: US 16:14
PROVIDERS: PCP Family Medicine; Referring Provider Internal Medicine Endocrinology, Diabetes & Metabolism; Visit Provider Internal Medicine Endocrinology, Diabetes & Metabolism
DX: C73 Malignant neoplasm of thyroid gland (principal); E89.0 Postprocedural hypothyroidism
CPT/HCPCS: 76536

== ENCOUNTER → 2022-01-19 | Outpatient (CLI) | payer BC, SELFPAY ==
[2022-01-19 17:11] LABS: T4 Free Direct 1.06 ng/dL (0.76-1.46); Thyroid Stim Hormone (TSH) 0.26 uIU/mL (0.358-3.74)
== END | disposition home or self-care (01) ==
LOC: BIMLAB 15:58
PROVIDERS: PCP Family Medicine; Visit Provider Nurse Practitioner Family
DX: E08.9 Diabetes mellitus due to underlying condition without complications (principal)
CPT/HCPCS: 36415; 84439; 84443

== ENCOUNTER → 2023-03-05 | Outpatient (CLI) | payer BC, SELFPAY | END | disposition home or self-care (01) | LOC: LABSPEC 12:03 | PROVIDERS: PCP Family Medicine; Referring Provider Nurse Practitioner Family; Visit Provider Nurse Practitioner Family | DX: N39.0 Urinary tract infection, site not specified (principal) | CPT/HCPCS: 87086; 87088; 87186 ==

== ENCOUNTER → 2023-08-29 | Outpatient (CLI) | payer SELFPAY ==
[2023-08-29 17:21] LABS: ALB/GLOB Ratio 0.9 RATIO (0.9-2.4); AST(SGOT) 19 U/L (15-37); Alanine Aminotransfer ALT/SGPT 21 U/L (13-56); Albumin, Serum 3.5 g/dL (3.2-5.0); Alkaline Phosphatase 65 U/L (45-117); Anion Gap 11 (5-15); BUN 14 mg/dL (7-18); BUN/Creat Ratio 15.4 RATIO (10-20); Calcium,Total 8.6 mg/dL (8.5-10.1); Chloride 109 mmol/L (98-107); Cholesterol 187 mg/dL (200); Creatinine, Serum 0.91 mg/dL (0.55-1.02); EST Glomerular Filtration Rate 68 mL/min (>60); Est Glom Filt Rate - Afr Amer 82 mL/min (>60); Globulin 3.7 g/dL (2.2-4.2); Glucose 83 mg/dL (74-106); High Density Lipoprotein 58 mg/dL; Potassium 3.9 mmol/L (3.5-5.1); Protein, Total 7.2 g/dL (6.4-8.2); Sodium Level 140 mmol/L (136-145); T4 Free Direct 1.38 ng/dL (0.76-1.46); Thyroid Stim Hormone (TSH) 0.09 uIU/mL (0.358-3.74); Triglycerides 117 mg/dL; Very Low Density Lipoprotein 23 mg/dL (5-40)
[2023-09-02 18:07] LABS: Anti-Thyroglobulin AB < 1.0 IU/mL (0.0-0.9); Thyroglobulin, Serum Qt. 4.1 ng/mL (1.5-38.5)
== END | disposition home or self-care (01) ==
LOC: BIMLAB 15:46
PROVIDERS: PCP Family Medicine; Referring Provider Internal Medicine Endocrinology, Diabetes & Metabolism; Visit Provider Internal Medicine Endocrinology, Diabetes & Metabolism
DX: C73 Malignant neoplasm of thyroid gland (principal); E89.0 Postprocedural hypothyroidism; E55.9 Vitamin D deficiency, unspecified
CPT/HCPCS: 36415; 80053; 80061; 82306; 84432; 84439; 84443; 86800

== ENCOUNTER → 2024-04-28 | Outpatient (CLI) | payer OTHER, SELFPAY ==
[2024-04-28 20:37] LABS: Thyroid Stim Hormone (TSH) 0.312 uIU/mL (0.300-4.200)
[2024-04-30 16:09] LABS: Anti-Thyroglobulin AB < 1.0 IU/mL (0.0-0.9); Thyroglobulin, Serum Qt. 3.3 ng/mL (1.5-38.5)
== END | disposition home or self-care (01) ==
LOC: BIMLAB 15:47
PROVIDERS: PCP Family Medicine; Referring Provider Internal Medicine Endocrinology, Diabetes & Metabolism; Visit Provider Internal Medicine Endocrinology, Diabetes & Metabolism
DX: C73 Malignant neoplasm of thyroid gland (principal); E89.0 Postprocedural hypothyroidism
CPT/HCPCS: 36415; 84432; 84439; 84443; 86800